=== PATIENT | male | born 1990 | race Caucasian/White ===

== ENCOUNTER 2021-01-28 14:14 | Emergency (ER) | payer OTHER ==
[~2021-01-28] VITALS: Ht 177.8 cm; Wt 115.7 kg
[2021-01-28 14:21] VITALS: BP 127/87
--- NOTE | 2021-01-28 14:39 | NUR ---
30 Y/O MALE [facility] FOR 5150 HOLD. PER PD PT THOUGHT HE DRANK ANIMAL EUTHANISA LIQUID TODAY, STATING SUICIDAL THOUGHTS ON SCENE. PD STATED PT DRANK A FACIAL CLEANSER AND NOT THE EUTHANASIA LIQUID . PT CURRENTLY DENIES ANY SUICIDAL THOGUHTS OR THOUGHTS OF HURTING OTHERS. DENIES ANY PAIN MEDHX: SCHIZOPHRENIA NKA
[2021-01-28 15:35] LABS: BASOPHILS % (AUTO) 0.3 % (0.0-2.0); EOSINOPHILS # (AUTO) 0.1 K/uL (0-0.4); EOSINOPHILS % (AUTO) 1.1 % (0.0-4.0); HEMATOCRIT 45.2 % (36-52); HEMOGLOBIN 15.2 g/dL (12.0-18.0); LYMPHOCYTES # (AUTO) 1.9 K/uL (2.0-11.5); LYMPHOCYTES % (AUTO) 23.1 % (20.5-51.1); MEAN CORPUSCULAR HEMOGLOBIN 31 pg (27-31); MEAN CORPUSCULAR HGB CONC 34 g/dL (33-37); MEAN CORPUSCULAR VOLUME 90.8 fL (80-94); MONOCYTES # (AUTO) 0.7 K/uL (0.8-1.0); MONOCYTES % (AUTO) 8.5 % (1.7-9.3); NEUTROPHILS # (AUTO) 5.5 K/uL (1.8-7.7); PLATELET COUNT (AUTO) 235 K/uL (140-450); RED BLOOD CELL COUNT(AUTO) 4.97 MIL/uL (4.20-6.10); RED CELL DISTRIBUTION WIDTH 13.7 % (11.6-13.7); WHITE BLOOD COUNT (AUTO) 8.3 K/uL (4.8-10.8)
[2021-01-28 15:55] LABS: BARBITURATE, URINE NEGATIVE ng/ml (NEG <=200); BENZODIAZEPINE, URINE NEGATIVE ng/mL (NEG <=200); CANNABINOID, URINE NEGATIVE ng/mL (NEG <=50); COCAINE, URINE NEGATIVE ng/mL (NEG <=300); OPIATE, URINE NEGATIVE ng/mL (NEG <=2000); PHENCYCLIDINE SCREEN,URINE NEGATIVE ng/mL (NEG <=25)
[2021-01-28 16:05] LABS: ACETAMINOPHEN < 0.5 ug/ml (10-30); ALBUMIN 4.2 g/dL (3.4-5.0); ANION GAP 13.9 (8-16); ASPARTATE AMINOTRANSFERASE 21 U/L (15-37); CHLORIDE 104 mmol/L (98-107); CREATININE 0.9 mg/dL (0.6-1.3); GFR ARICAN-AMERICAN 126 mL/min (>90); GLUCOSE 91 mg/dL (74-106); POTASSIUM 3.9 mmol/L (3.5-5.1); SALICYLATE < 2.8 mg/dL (2.8-20.0); SODIUM SERUM 142 mmol/L (136-145); TOTAL BILIRUBIN 0.3 mg/dL (0.0-1.0); UREA NITROGEN, BLOOD 14 mg/dL (7-18)
--- NOTE | 2021-01-28 16:21 | NUR ---
PT MEDICALLY CLEARED BY DR TOUSSAINT
--- NOTE | 2021-01-28 17:45 | NUR ---
PT EATING, RESTING COMFORTABLY IN BED, CALM AND COMPLIANT AT THIS TIME.
--- NOTE | 2021-01-28 19:16 | NUR ---
Pt report given to SARATH ABDALLA. Transfer of care at this time.
--- NOTE | 2021-01-28 19:20 | NUR ---
PT. GIVEN WATER, PT. CALM AND COOPERATIVE.
--- NOTE | 2021-01-28 19:30 | NUR ---
PATIENT ELOPED FROM FACILITY. PER SECURITY CAMERAS, PT. USED BATHROOM AND RAN OUTSIDE FROM THE ER LOBBY TO [facility]. XAVIER TOUSSAINT NOTIFIED.
--- NOTE | 2021-01-28 19:50 | NUR ---
CALLED [facility] TO REPORT ELOPEMENT FROM PT. PER [facility] QU[facility]N, THEY WILL CALL BACK FOR ANY UPDATES.
== END 2021-01-28 19:30 | disposition left against medical advice (07) ==
LOC: MED 14:14
DX: R45.851 Suicidal ideations (principal); Z20.822 Contact with and (suspected) exposure to COVID-19; R44.0 Auditory hallucinations; R44.1 Visual hallucinations; F20.9 Schizophrenia, unspecified; F17.290 Nicotine dependence, other tobacco product, uncomplicated
CPT/HCPCS: 36415; 80053; 80305; 81002; 85025; 87426; 93005; 99285; G0480; G0482; U0003

== ENCOUNTER 2021-01-28 20:35 | Emergency (ER) | payer OTHER ==
[~2021-01-28] VITALS: Ht 177.8 cm; Wt 115.7 kg
[2021-01-28 20:35] VITALS: BP 125/80
--- NOTE | 2021-01-28 20:35 | NUR ---
JOSIE BY [facility] AND [facility] FROM [facility] DUE TO PT. ELOPEMENT. PT. IS A 30 Y/O MALE THAT CAME INTO ED FOR 5150. PER [facility]ERT QUINN, PT. WAS FOUND [place] AT [facility]. PER ROBERT QUINN, PT. STATED "THAT HE DID NOT WANT TO BE IN A 5150 ANYMORE AND WANTED TO GO HOME. HE ALSO STATED THAT HE HAD AN APPOINTMENT FOR HIS MEDICATIONS." AAOX4; VSS PMH: SCHIZOPRENIA ALLERGIES: NKA
--- NOTE | 2021-01-28 20:50 | NUR ---
XAVIER TOUSSAINT AT BEDSIDE FOR MEDICAL EXAMINATION
--- NOTE | 2021-01-28 21:17 | NUR ---
LAB AT BEDSIDE
[2021-01-28 21:26] LABS: BASOPHILS % (AUTO) 0.2 % (0.0-2.0); EOSINOPHILS # (AUTO) 0.1 K/uL (0-0.4); EOSINOPHILS % (AUTO) 1.3 % (0.0-4.0); HEMATOCRIT 43.4 % (36-52); HEMOGLOBIN 14.6 g/dL (12.0-18.0); LYMPHOCYTES % (AUTO) 21.2 % (20.5-51.1); MEAN CORPUSCULAR HEMOGLOBIN 30 pg (27-31); MEAN CORPUSCULAR HGB CONC 34 g/dL (33-37); MEAN CORPUSCULAR VOLUME 90.1 fL (80-94); MONOCYTES % (AUTO) 10.6 % (1.7-9.3); NEUTROPHILS # (AUTO) 6.4 K/uL (1.8-7.7); NEUTROPHILS % (AUTO) 66.7 % (42.2-75.2); PLATELET COUNT (AUTO) 231 K/uL (140-450); RED BLOOD CELL COUNT(AUTO) 4.82 MIL/uL (4.20-6.10); RED CELL DISTRIBUTION WIDTH 13.8 % (11.6-13.7); WHITE BLOOD COUNT (AUTO) 9.5 K/uL (4.8-10.8)
--- NOTE | 2021-01-28 21:47 | NUR ---
Packet received for placement before elopement. Has been fax to the following facilities [facility]
[2021-01-28 21:52] LABS: ALBUMIN 3.9 g/dL (3.4-5.0); ANION GAP 13.6 (8-16); ASPARTATE AMINOTRANSFERASE 24 U/L (15-37); CARBON DIOXIDE 26.8 mmol/L (21-32); CHLORIDE 104 mmol/L (98-107); CREATININE 0.9 mg/dL (0.6-1.3); GFR ARICAN-AMERICAN 126 mL/min (>90); GLUCOSE 99 mg/dL (74-106); POTASSIUM 3.4 mmol/L (3.5-5.1); SALICYLATE < 2.8 mg/dL (2.8-20.0); SODIUM SERUM 141 mmol/L (136-145); TOTAL BILIRUBIN 0.3 mg/dL (0.0-1.0); UREA NITROGEN, BLOOD 15 mg/dL (7-18)
[2021-01-28 21:53] LABS: ACETAMINOPHEN < 0.5 ug/ml (10-30)
--- NOTE | 2021-01-28 22:29 | NUR ---
PT. SEEN IN SUPINE POSITION WITH BLANKET ON BODY, RESTING WITH EYES CLOSED. VOICES NO COMPLAINTS AT THIS TIME
--- NOTE | 2021-01-29 01:30 | NUR ---
PT. ON HIS LEFT SIDE, RESTING WITH EYES CLOSED. VOICES NO COMPLAINTS AT THIS TIME.
--- NOTE | 2021-01-29 06:04 | NUR ---
PT. SEEN IN SUPINE POSITION, RESTING WITH EYES CLOSED AND BLANKET ON BODY. VOICES NO COMPLAINTS AT THIS TIME.
--- NOTE | 2021-01-29 07:13 | NUR ---
Report and continuation of care received from RM Lopez.
--- NOTE | 2021-01-29 07:13 | NUR ---
REPORT GIVEN TO RM INIGUEZ. TRANSFER OF CARE AT THIS TIME.
--- NOTE | 2021-01-29 07:30 | NUR ---
Pt asleep with both eyes close laying supine with blanket.
--- NOTE | 2021-01-29 08:13 | NUR ---
Patient ambulated to restroom with steady/even gait.
--- NOTE | 2021-01-29 10:36 | NUR ---
Patient resting with both eyes closed laying on left side. Respirations even/unlabored; equal chest rise and fall. Bed locked in lowest position, side rails x 1.
--- NOTE | 2021-01-29 12:29 | NUR ---
Lunch mealtray provided at bedside. Patient completing meal at this time.
[2021-01-29] MEDS ORDERED: risperiDONE 1 MG TAB ONE (13:46)
[2021-01-29] MEDS ORDERED: risperiDONE 1 MG TAB PO SCH (13:55)
--- NOTE | 2021-01-29 14:00 | NUR ---
Patient ambulated to restroom with steady/even gait.
--- NOTE | 2021-01-29 14:07 | NUR ---
Patient back to bed 06, standing next to bed.
--- NOTE | 2021-01-29 15:10 | NUR ---
Patient laying upright with bed in supine position; both eyes open. All pt needs met at this time. No distress noted. Bed locked in lowest position, side rail x 1.
--- NOTE | 2021-01-29 15:35 | NUR ---
Pt ambulated to restroom
--- NOTE | 2021-01-29 16:20 | NUR ---
Received verbal order from Dr. Baker for Vital Signs [id number]
--- NOTE | 2021-01-29 17:41 | NUR ---
Patient presents laying on R side in supine position. No distress noted. Bed locked in lowest position, side rails x 1.
--- NOTE | 2021-01-29 18:15 | NUR ---
Mealtray at bedside. Pt completing meal at this time. All needs met.
--- NOTE | 2021-01-29 19:17 | NUR ---
Report and transfer of care given to RM Manuel.
--- NOTE | 2021-01-29 19:35 | NUR ---
PT IS AWAKE AND ALERT. VSS. PT IS IN STABLE CONDITION. STATES HE IS UNABLE TO SLEEP AND WOULD LIKE MEDICATION TO SLEEP. WILL TALK TO DOCTOR. ALL OTHER NEEDS MET AT THIS TIME. PT IS WALKING AROUND BED.
--- NOTE | 2021-01-29 19:38 | NUR ---
PT AMBULATED TO AND BACK TO BED WITH STEADY GAIT.
[2021-01-29] MEDS ORDERED: traZODone 50 MG TAB PO SCH (21:00)
--- NOTE | 2021-01-29 23:44 | NUR ---
PT IS SLEEPING. EQUAL RISE AND FALL OF CHEST WALL. BED IN LOWEST POSITION. PT REQUESTED FOR SIDE RAILS TO REMAIN DOWN.
--- NOTE | 2021-01-30 02:35 | NUR ---
PT IS SLEEPING. EQUAL RISE AND FALL OF CHEST WALL. BED IN LOWEST POSITION. PT REQUESTED FOR SIDE RAILS TO REMAIN DOWN.
--- NOTE | 2021-01-30 04:39 | NUR ---
PT IS SLEEPING. EQUAL RISE AND FALL OF CHEST WALL. BED IN LOWEST POSITION. PT REQUESTED FOR SIDE RAILS TO REMAIN DOWN.
--- NOTE | 2021-01-30 06:35 | NUR ---
pt ambulated to with steady gait and back to bed.
--- NOTE | 2021-01-30 07:22 | NUR ---
Pt report given to nichole tristan. Transfer of care at this time.
--- NOTE | 2021-01-30 07:23 | NUR ---
report and continuation of care received from nichole feliciano.
--- NOTE | 2021-01-30 08:19 | NUR ---
PATIENT EATING BREAKFAST AT BEDSIDE. AWAKE AND ALERT, RR EVEN AND UNLABORED.
[2021-01-30] MEDS ORDERED: risperiDONE 1 MG TAB PO SCH (09:00)
[2021-01-30 11:00] VITALS: BP 116/69
--- NOTE | 2021-01-30 11:00 | NUR ---
VS TAKEN, STABLE AT THIS TIME.
--- NOTE | 2021-01-30 11:08 | NUR ---
PATIENT EATING SANDWICH AT BEDSIDE.
--- NOTE | 2021-01-30 11:56 | NUR ---
PATIENT EATING LUNCH AT BEDSIDE.
--- NOTE | 2021-01-30 12:17 | NUR ---
PATIENT AMBULATED TO BATHROOM STEADY GAIT.
--- NOTE | 2021-01-30 12:56 | NUR ---
AT THIS TIME , THERE ARE NO BEDS AVAILABLE AT ANY OF THE DESIGNATED FACILITIES , WILL CONTINUE TO MAKE CALLS FOR PLACEMENT AND NOTIFY ER WHEN A BED IS AVAILABLE .
--- NOTE | 2021-01-30 13:49 | NUR ---
PATIENT ELOPED FROM HOSPITAL THROUGH AMBULANCE ENTRANCE, PATIENT TOOK OFF GOWN AND THREW IT IN TRASH AND RAN. SECURITY AND [place] [employer] CONTACTED.
--- NOTE | 2021-01-30 13:49 | NUR ---
PATIENT ELOPED FROM FACILITY. DISCHARGE INSTRUCTIONS NOT GIVEN TO PATIENT. DR. HOPKINS NOTIFIED.
--- NOTE | 2021-01-30 13:53 | NUR ---
CALLED [facility], STATED SINCE THEY DID NOT PLACE PT ON 5150, TO CALL [facility].
--- NOTE | 2021-01-30 13:54 | NUR ---
CALLED [facility], SPOKE WITH MARIELA NOTIFIED PT RAN OFF THE FACILITY IN A PT GOWN, PT THREW GOWN INTRO TRASH AND RAN OFF IN BOXERS. STATED SHE WILL CALL [facility]ERT QUINN TO RESPOND.
--- NOTE | 2021-01-30 18:38 | NUR ---
MAKENNA COMPLETED Unique Id: [id number]
== END 2021-01-30 13:49 | disposition left against medical advice (07) ==
LOC: MED 20:35
DX: R45.851 Suicidal ideations (principal); F32.9 Major depressive disorder, single episode, unspecified; R44.0 Auditory hallucinations; R44.1 Visual hallucinations; F20.9 Schizophrenia, unspecified; F17.290 Nicotine dependence, other tobacco product, uncomplicated
CPT/HCPCS: 36415; 80053; 85025; 93005; 99285; G0480; G0482